=== PATIENT | male | born 1980 | race Caucasian/White ===

== ENCOUNTER 2019-10-09 09:17 | Inpatient (IN) | payer OTHER ==
[~2019-10-09] VITALS: Ht 180.3 cm; Wt 81.6 kg
[2019-10-09] MEDS ORDERED: PREVACID15 MG PO (09:41)
[2019-10-09] MEDS ORDERED: RESTORIL15 M1 PO (09:41)
--- NOTE | 2019-10-09 09:42 | NUR ---
PACIENTE MASCULINO ALERTA Y ORIENTADO. REFERIDO EN MANO PARA SER EVALUADO POR EL DR ZHONG. PACIENTE CON HEMORROIDES, LOS SINTOMAS DESDE HACE 4 MIRANDA.
--- NOTE | 2019-10-09 10:12 | NUR ---
SE ORIENTA A PTE SOBRE PROCESO DE VENOPUNCION, WEI DE MUESTRAS, ADMINISTRACION DE MED IV Y WEI DE PLACAS. PTE REFIERE ENTENDER INF SMITH POR RADHA SEYMOUR. SE ESEPRA POR PERSONAL DE PLACAS.
[2019-10-10] MEDS ORDERED: COLACE100 MG PO (12:30)
[2019-10-10] MEDS ORDERED: NEURONTIN300 MG PO (12:30)
[2019-10-10] MEDS ORDERED: PERCOCET 5-3251 EACH PO (12:35)
== END 2019-10-10 17:08 | disposition home or self-care (01) | DRG 348 ==
LOC: ER 09:17 → SURG 13:12 → SEC-K 13:12 → SURG 13:53
PROVIDERS: ADMIT Surgery
PROC: 06BY0ZC Excision of Hemorrhoidal Plexus, Open Approach (ICD-10-PCS; principal; 2019-10-09)
PROC: 3E0T3BZ Introduction of Anesthetic Agent into Peripheral Nerves and Plexi, Percutaneous Approach (ICD-10-PCS; 2019-10-09)
DX: K64.5 Perianal venous thrombosis (principal); K62.5 Hemorrhage of anus and rectum; K64.0 First degree hemorrhoids

== ENCOUNTER 2019-10-11 01:30 | Emergency (ER) | payer OTHER ==
[~2019-10-11] VITALS: Ht 180.3 cm; Wt 83.9 kg
[~2019-10-11 01:30] MED LIST: COLACE100 MG PO; NEURONTIN300 MG PO; PERCOCET 5-3251 EACH PO; PREVACID15 MG PO; RESTORIL15 M1 PO
== END 2019-10-11 08:31 ==
LOC: ER 01:30
DX: R33.8 Other retention of urine (principal)